=== PATIENT | female | born 1960 | race Caucasian/White ===

== ENCOUNTER 2017-08-13 12:43 | Day surgery (SDC) | payer OTHER ==
[2017-08-13] MEDS ORDERED: LIDOCAINE 1% 300 MG/30 ML SDV ONE (13:48)
[2017-08-13] MEDS ORDERED: MIDAZOLAM 2 MG/2 ML VIAL ONE ×3 (13:49→14:34)
[2017-08-13] MEDS ORDERED: fentaNYL 100 MCG/2 ML INJ ONE ×2 (13:49→14:34)
--- NOTE | 2017-08-13 14:13 | PDPROPOC ---
Sedation Plan of Care Sedation Plan of Care: vital signs stable, mental status noted ASA Classification: ASA 1 Planned drugs: fentanyl, midazolam Mallampati Score: Class 2 Mallampati Reference Image: Patient passed 3-3-2 rule?: Yes
--- NOTE | 2017-08-13 14:13 | PDGENHP ---
History & Physical Chief Complaint: LINQ removal History of Present Illness: 57 yo F with hx of cryptogenic stroke. LINQ has been in place for 3 years, now needs removal Pertinent Past, Social, Family History: reviewed Relevant Physical Exam: RRR no m/r/g. Lungs CTAB Cardiorespiratory Assessment: stable
--- NOTE | 2017-08-13 15:15 | POSTOPPROG ---
Post Op Note Date of Operation: 08/13/17 Surgeon: Mackenzie Lorenzo Anesthesia: IV Sedation Pre-op Diagnosis: LINQ device at end of service Post-op Diagnosis: s/p LINQ removal Indication: LINQ at end of service Procedure: LINQ removal Findings: uncomplicated LINQ removal Inf/Abcess present in the surg proc area at time of surgery?: No EBL: Minimal Complications: none Specimen(s): LINQ device explanted
== END 2017-08-13 16:53 | disposition home or self-care (01) ==
LOC: FCATH 12:43
PROVIDERS: ATTEND Internal Medicine Cardiovascular Disease
PROC: 0JPT32Z Removal of Monitoring Device from Trunk Subcutaneous Tissue and Fascia, Percutaneous Approach (ICD-10-PCS; principal; 2017-08-13)
DX: Z45.09 Encounter for adjustment and management of other cardiac device (principal); Z86.73 Personal history of transient ischemic attack (TIA), and cerebral infarction without residual deficits
CPT/HCPCS: J2250; J3010

== ENCOUNTER → 2018-12-20 | Outpatient (CLI) | payer OTHER | LOC: BMCIMAGING 13:19 | PROVIDERS: ATTEND Family Medicine | DX: Z12.31 Encounter for screening mammogram for malignant neoplasm of breast (principal) ==